=== PATIENT | male | born 1965 | race American Indian/Alaskan Native ===

== ENCOUNTER 2020-01-08 19:56 | Emergency (ER) | payer MEDICARE ==
[2020-01-08 20:55] VITALS: BP 151/104
--- NOTE | 2020-01-08 21:41 | Cat Scan Report ---
CT head/brain wo con INDICATION: seizure/fall. TECHNIQUE: Routine CT head without contrast. All CT scans at this location are performed using CT dos e reduction for ALARA by means of automated exposure control. COMPARISON: None. FINDINGS: BRAIN / INTRACRANIAL CONTENTS: No acute hemorrhage, mass effect, midline shift, or hydrocephalus. No appreciable acute large territorial or lacunar infarct. No chronic infarct or focal atrophy. Normal b rain volume and ventricular/sulcal size for age. ORBITS: No significant abnormality of visualized orbits. SINUSES / MASTOIDS: No significant abnormality of visualized sinuses and mastoid air cells. ADDITIONAL FINDINGS: None. IMPRESSION: 1. No acute intracranial abnormality. Signer Name: Homero Thompson MD Signed: 01/08/2020 9:37 PM Workstation Name: [id number]
--- NOTE | 2020-01-08 21:45 | Cat Scan Report ---
CT MAXILLOFACIAL WITHOUT CONTRAST INDICATION: seizure/fall. TECHNIQUE: All CT scans at this location are performed using CT dose reduction for ALARA by means of automated e xposure control. COMPARISON: None available. FINDINGS: FACIAL BONES: No fracture or other significant abnormality. PARANASAL SINUSES: No significant abnormality. ORBITS: No significant abnormality. VISUALIZED INTRACRANIAL STRUCTURES: No significant abnormality. ADDITIONAL FINDINGS: None. IMPRESSION: 1. No acute maxillofacial fracture. Signer Name: Homero Thompson MD Signed: 01/08/2020 9:41 PM Workstation Name: [id number]
--- NOTE | 2020-01-08 21:46 | Cat Scan Report ---
CT CERVICAL SPINE WITHOUT CONTRAST INDICATION: seizure/fall. TECHNIQUE: Axial CT images of the spine were obtained. Sagittal and coronal reformatted images were produced. Al l CT scans at this location are performed using CT dose reduction for ALARA by means of automated exp osure control. COMPARISON: None available. FINDINGS: ACUTE FRACTURE(S) OR SUBLUXATION: None. SPINAL DEGENERATIVE CHANGES: There is mild degenerative disc disease at C5-6 and C6-7 with endplate o steophyte formation resulting in mild central canal stenosis at both levels. PARASPINAL SOFT TISSUES: No soft tissue swelling or other acute abnormalities. ADDITIONAL FINDINGS: No significant additional findings. IMPRESSION: 1. No acute fracture or subluxation in the spine in neutral position. Signer Name: Homero Thompson MD Signed: 01/08/2020 9:42 PM Workstation Name: [id number]
[2020-01-08 22:15] LABS: Basophils # (Auto) 0.1 K/mm3 (0.0-0.1); Basophils % (Auto) 1.1 % (0.0-1.8); Eosinophils % (Auto) 0.2 % (0.0-4.3); Hematocrit 46.1 % (35.5-45.6); Hemoglobin 15.7 gm/dl (11.8-15.2); Lymphocytes # (Auto) 1.2 K/mm3 (1.2-5.4); Lymphocytes % (Auto) 15.3 % (13.4-35.0); Mean Corpuscular HGB Conc 34 % (32-34); Mean Corpuscular Volume 94 fl (84-94); Monocytes # (Auto) 0.6 K/mm3 (0.0-0.8); Monocytes % (Auto) 7.4 % (0.0-7.3); Platelet Count 277 K/mm3 (140-440); Red Blood Count 4.92 M/mm3 (3.65-5.03); Red Cell Distribution Width 13.3 % (13.2-15.2)
[2020-01-08 22:27] LABS: Amphetamine Screen,Urine PRESUMPTIVE NEGATIVE; Benzodiazepines Screen,Urine PRESUMPTIVE NEGATIVE; Cannabinoid Screen,Urine PRESUMPTIVE POSITIVE; Cocaine Screen,Urine PRESUMPTIVE POSITIVE; Methadone Screen,Urine PRESUMPTIVE NEGATIVE; Opiate Screen,Urine PRESUMPTIVE NEGATIVE
[2020-01-08 22:39] LABS: Alanine Aminotransferase 22 units/L (7-56); Albumin 4.6 g/dL (3.9-5); BUN/Creatinine Ratio 11; Blood Urea Nitrogen 13 mg/dL (9-20); Calcium 9.6 mg/dL (8.4-10.2); Hemolysis Index 15
[2020-01-09] MEDS ORDERED: DIPHtheria,PERTUSSIS(ACELL),TETANUS VACCINE/PF 0.5 ML VIAL IM ONE (00:06)
--- NOTE | 2020-01-09 01:24 | Emergency Department Report ---
ED Seizure HPI - General Chief Complaint: Seizure Stated Complaint: SEIZURE Time Seen by Provider: 01/09/20 00:05 Source: patient, EMS Mode of arrival: Ambulatory Limitations: No Limitations - History of Present Illness MD Complaint: seizure, possible seizure -: Last night Description of Episode: loss of consciousness Trauma: Yes Seizure History: known seizure disorder Place: home Possible Precipitating Event: other (For coughing spell which she reports is because she is she is seizures in the past) Associated Symptoms: cough Treatments Prior to Arrival: none - Related Data Previous Rx's Medication Instructions Recorded Last Taken Type levETIRAcetam [Keppra TAB] 500 mg PO BID #30 tablet 01/09/20 Unknown Rx Allergies Allergy/AdvReac Type Severity Reaction Status Date / Time No Known Allergies Allergy Unverified 01/08/20 20:55 ED Review of Systems ROS: Stated complaint: SEIZURE Other details as noted in HPI Comment: All other systems reviewed and negative ED Past Medical Hx - Past Medical History Previous Medical History?: Yes Hx Seizures: Yes - Surgical History Past Surgical History?: No - Social History Smoking Status: Current Every Day Smoker Substance Use Type: Alcohol, Marijuana - Medications Home Medications: Home Medications Medication Instructions Recorded Confirmed Last Taken Type levETIRAcetam [Keppra TAB] 500 mg PO BID #30 tablet 01/09/20 Unknown Rx ED Physical Exam - General Limitations: No Limitations General appearance: alert, in no apparent distress - Head Head exam: Present: normocephalic. Absent: atraumatic - Expanded Head Exam Expanded Head exam: Present: contusion, hematoma. Absent: tenderness of temporal artery, CSF rhinorrhea 1 - Swelling and central hematoma contusion 2 - Laceration to this region 3 cm - Eye Eye exam: Present: normal appearance, PERRL, EOMI. Absent: conjunctival injection, periorbital swelling, periorbital tenderness Pupils: Present: normal accommodation - ENT ENT exam: Present: normal exam, mucous membranes moist, TM's normal bilaterally - Neck Neck exam: Present: normal inspection, tenderness, full ROM - Respiratory Respiratory exam: Present: normal lung sounds bilaterally. Absent: respiratory distress - Cardiovascular Cardiovascular Exam: Present: regular rate, normal rhythm. Absent: systolic murmur, diastolic murmur, rubs, gallop - GI/Abdominal GI/Abdominal exam: Present: soft, normal bowel sounds - Rectal Rectal exam: Present: deferred - Extremities Exam Extremities exam: Present: normal inspection - Back Exam Back exam: Present: normal inspection - Neurological Exam Neurological exam: Present: alert, oriented X3 - Psychiatric Psychiatric exam: Present: normal affect, normal mood - Skin Skin exam: Present: warm, dry, intact, normal color. Absent: rash ED Course Vital Signs 01/08/20 20:49 Temperature 97.8 F Pulse Rate 85 Respiratory 18 Rate Blood Pressure 151/104 O2 Sat by Pulse 99 Oximetry - Laceration /Wound Repair Face Wound Location: face Wound Length (cm): 3 Wound's Depth, Shape: linear, irregular Betadine Prep?: Yes Anesthesia: 1% Lidocaine Wound Debrided: minimal Suture Size/Type: 5:0 (Vicryl in a subcuticular fashion) Sterile Dressing Applied?: Yes ED Medical Decision Making - Lab Data Result diagrams: 01/08/20 22:07 01/08/20 22:07 - Radiology Data Radiology results: report reviewed Referring Physician:ZARA YOUNGPatient Name:DARRIN ALONSOPatient ID:[id number] of :[id number]:MaleAccession:[id number] Date:7129-55-12Cliccr Status:[place] [address] Cat Scan Report Signed Patient: DARRIN ALONSO MR#: [id number] 40 : 1965 Acct:[id number] Age/Sex: 54 / M ADM Date: 01/08/20 Loc: ED Attending Dr: Ordering Physician: ZARA YOUNG MD Date of Service: 01/08/20 Procedure(s): CT head/brain wo con Accession Number(s): [id number] cc: ZARA YOUNG MD CT head/brain wo con INDICATION: seizure/fall. TECHNIQUE: Routine CT head without contrast. All CT scans at this location are performed using CT dose reduction for ALARA by means of automated exposure control. COMPARISON: None. FINDINGS: BRAIN / INTRACRANIAL CONTENTS: No acute hemorrhage, mass effect, midline shift, or hydrocephalus. No appreciable acute large territorial or lacunar infarct. No chronic infarct or focal atrophy. Normal brain volume and ventricular/sulcal size for age. ORBITS: No significant abnormality of visualized orbits. SINUSES / MASTOIDS: No significant abnormality of visualized sinuses and mastoid air cells. ADDITIONAL FINDINGS: None. IMPRESSION: 1. No acute intracranial abnormality. Signer Name: Homero Thompson MD Signed: 01/08/2020 9:37 PM Workstation Name: [id number] Transcribed By: ANNA MARIE Dictated By: Homero Thompson MD Electronically Authenticated By: Homero Thompson MD Signed Date/Time: 01/08/202136 DD/ 35 TD/TT: Print Report Referring Physician:ZARA YOUNGPatient Name:DARRIN ALONSOPatient ID:[id number] of :[id number]:MaleAccession:[id number] Date:7605-34-90Ctjlmc Status:[place] [address] Cat Scan Report Signed Patient: DARRIN ALONSO MR#: [id number] 40 : 1965 Acct:[id number] Age/Sex: 54 / M ADM Date: 01/08/20 Loc: ED Attending Dr: Ordering Physician: ZARA YOUNG MD Date of Service: 01/08/20 Procedure(s): CT cervical spine wo con Accession Number(s): [id number] cc: ZARA YOUNG MD CT CERVICAL SPINE WITHOUT CONTRAST INDICATION: seizure/fall. TECHNIQUE: Axial CT images of the spine were obtained. Sagittal and coronal reformatted images were produced. All CT scans at this location are performed using CT dose reduction for ALARA by means of automated exposure control. COMPARISON: None available. FINDINGS: ACUTE FRACTURE(S) OR SUBLUXATION: None. SPINAL DEGENERATIVE CHANGES: There is mild degenerative disc disease at C5-6 and C6-7 with endplate osteophyte formation resulting in mild central canal stenosis at both levels. PARASPINAL SOFT TISSUES: No soft tissue swelling or other acute abnormalities. ADDITIONAL FINDINGS: No significant additional findings. IMPRESSION: 1. No acute fracture or subluxation in the spine in neutral position. Signer Name: Homero Thompson MD Signed: 01/08/2020 9:42 PM Workstation Name: [id number] Transcribed By: ANNA MARIE Dictated By: Homero Thompson MD Electronically Authenticated By: Homero Thompson MD Signed Date/Time: 01/08/202141 DD/DT: Print Report Referring Physician:ZARA YOUNGPatient Name:DARRIN ALONSOPatient ID:[id number] of :[id number]:MaleAccession:[id number] Date:6929-26-86Jmswot Status:Finalized Findings [facility] [address] [place] [address] Cat Scan Report Signed Patient: DARRIN ALONSO MR#: [id number] 40 : 1965 Acct:[id number] Age/Sex: 54 / M ADM Date: 01/08/20 Loc: ED Attending Dr: Ordering Physician: ZARA YOUNG MD Date of Service: 01/08/20 Procedure(s): CT facial bones wo con Accession Number(s): [id number] cc: ZRAA YOUNG MD CT MAXILLOFACIAL WITHOUT CONTRAST INDICATION: seizure/fall. TECHNIQUE: All CT scans at this location are performed using CT dose reduction for ALARA by means of automated exposure control. COMPARISON: None available. FINDINGS: FACIAL BONES: No fracture or other significant abnormality. PARANASAL SINUSES: No significant abnormality. ORBITS: No significant abnormality. VISUALIZED INTRACRANIAL STRUCTURES: No significant abnormality. ADDITIONAL FINDINGS: None. IMPRESSION: 1. No acute maxillofacial fracture. Signer Name: Homero Thompson MD Signed: 01/08/2020 9:41 PM Workstation Name: [id number] Transcribed By: ANNA MARIE Dictated By: Homero Thompson MD Electronically Authenticated By: Homero Thompson MD Signed Date/Time: 01/08/202140 DD/ 39 TD/TT: - Medical Decision Making 55-year-old -[place]wegian male with a reported known history of seizure disorder of what he states is unknown etiology feels his seizures have been triggered by coughing. He was found to have cocaine as well as THC in his blo odstream which may have lowered his seizure threshold as well. Seizure did result in him falling forward and striking his face and head resulting in trauma but CT scans were unremarkable Current Hadley coma scale 15. Does have large occiput to hematoma. No skull crepitance or stepoff. No Nevarez sign. No raccoon eyes. No fluid from nose or ears. No nasal septal hematoma. No open wounds. No cervical spine tenderness. CT scan performed to evaluate for any intracranial injury or skull fracture. Patient is protecting airway and otherwise has an unremarkable secondary trauma survey. Given instructions regarding supportive care including pain meds as needed, return precautions, follow-up with primary physician. Critical care attestation.: If time is entered above; I have spent that time in minutes in the direct care of this critically ill patient, excluding procedure time. ED Disposition Clinical Impression: Head trauma, Facial laceration, Head contusion, Drug abuse, Seizure Disposition: - TO HOME OR SELFCARE Is pt being admited?: No Does the pt Need Aspirin: No Condition: Stable Instructions: Minor Head Injury (ED), Non-epileptic Seizures (ED), Polysubstance Abuse (ED), Computed Tomography Scan (ED), Absorbable Suture Care (ED) Additional Instructions: Sutures placed in your face are absorbable and require no removal please follow- up with primary care provider for wound reevaluation in 3 days Prescriptions: levETIRAcetam [Keppra TAB] 500 mg PO BID #30 tablet Referrals: YIFAN LOCKWOOD MD [Primary Care Provider] - 3-5 Days
== END 2020-01-09 02:00 | disposition home or self-care (01) ==
LOC: ED 19:56
DX: S01.81XA Laceration without foreign body of other part of head, initial encounter (principal); R56.9 Unspecified convulsions; F19.10 Other psychoactive substance abuse, uncomplicated; F17.200 Nicotine dependence, unspecified, uncomplicated; F12.10 Cannabis abuse, uncomplicated; Z79.899 Other long term (current) drug therapy; X58.XXXA Exposure to other specified factors, initial encounter; Y93.89 Activity, other specified; Y92.89 Other specified places as the place of occurrence of the external cause; Y99.8 Other external cause status
CPT/HCPCS: 36415; 70450; 70486; 72125; 80053; 80307; 80320; 85025; 90471; 90715; G0480